=== PATIENT | female | born 1975 | race Caucasian/White ===

== ENCOUNTER → 2017-09-08 17:44 | Outpatient (CLI) | payer OTHER | END | disposition home or self-care (01) | LOC: LAB 17:44 | DX: J06.9 Acute upper respiratory infection, unspecified (principal) ==

== ENCOUNTER → 2017-09-08 | Outpatient (CLI) | payer OTHER ==
[~2017-09-08] VITALS: Ht 152.4 cm; Wt 94.3 kg
[~2017-09-08] MED LIST: CLOZAPINE50 MG
== END | disposition home or self-care (01) ==
LOC: PPHC 15:46
DX: J06.9 Acute upper respiratory infection, unspecified (principal)

== ENCOUNTER 2018-01-09 12:59 | Outpatient (CLI) | payer OTHER | END 2018-01-09 18:17 | disposition home or self-care (01) | LOC: LAB 12:59 | DX: D64.89 Other specified anemias (principal); E11.00 Type 2 diabetes mellitus with hyperosmolarity without nonketotic hyperglycemic-hyperosmolar coma (NKHHC); E78.5 Hyperlipidemia, unspecified ==

== ENCOUNTER → 2018-05-25 13:08 | Outpatient (CLI) | payer OTHER | END | disposition home or self-care (01) | LOC: LAB 13:08 | DX: D64.89 Other specified anemias (principal) ==